=== PATIENT | male | born 1960 | race Hispanic/Latino ===

== ENCOUNTER 2020-11-16 23:28 | Emergency (ER) | payer OTHER ==
[~2020-11-16] VITALS: Ht 167.6 cm; Wt 95.3 kg
[~2020-11-16 23:28] MED LIST: Z NIFEDIPINE PO; Z.0.CELEBREX200 MG PO; Z.2.METFORMIN HCL500 PO
[2020-11-17] MEDS ORDERED: SODIUM CHLORIDE 0.9% 1000ML 1,000 ML IV SCH
[2020-11-17 00:08] LABS: BASOPHILS % 0.3 % (0.0-1.0); EOSINOPHILS % 0.2 % (0.0-6.0); HEMATOCRIT 45.7 % (38.2-49.6); HEMOGLOBIN 14.9 g/dL (14.0-18.0); LYMPHOCYTES # (AUTO) 0.8 (1.0-3.2); LYMPHOCYTES % 12.7 % (18.0-39.1); MEAN CORPUSCULAR HEMOGLOBIN 28.8 pg (28-32); MEAN CORPUSCULAR HGB CONC 32.6 g/dL (31-35); MEAN CORPUSCULAR VOLUME 88.4 fL (81-99); MONOCYTES # (AUTO) 0.7 (0.2-0.8); NEUTROPHILS # (AUTO) 4.9 (2.1-6.9); NEUTROPHILS % 75.3 % (38.7-80.0); PLATELET COUNT 212 x10e3/uL (140-360); RED BLOOD COUNT 5.17 x10e6/uL (4.3-5.7); RED CELL DISTRIBUTION WIDTH 13.6 % (11.7-14.4)
[2020-11-17] MEDS ORDERED: FAMOTIDINE 20 MG/2 ML VIAL IV STA (00:21)
[2020-11-17 00:23] LABS: ALBUMIN 3.3 g/dL (3.5-5.0); ALBUMIN/GLOBULIN RATIO 0.9 (0.8-2.0); ANION GAP 15.6 mmol/L (8-16); CALCIUM 8.7 mg/dL (8.4-10.2); CREATININE, SERUM 0.8 mg/dL (0.72-1.25); POTASSIUM 3.6 mmol/L (3.5-5.1)
[2020-11-17] MEDS ORDERED: DICYCLOMINE HCL 20 MG/2 ML VIAL IM ONE (00:30)
[2020-11-17] MEDS ORDERED: DICYCLOMINE HCL20 MG PO (01:06)
[2020-11-17 01:34] VITALS: BP 132/88
== END 2020-11-17 01:37 | disposition home or self-care (01) ==
LOC: ER 23:55
DX: R19.7 Diarrhea, unspecified (principal); I10 Essential (primary) hypertension; E11.65 Type 2 diabetes mellitus with hyperglycemia
CPT/HCPCS: 36415; 80053; 83690; 85025; 99284; J0500; J7030

== ENCOUNTER 2024-04-20 11:14 | Emergency (ER) | payer MEDICARE, OTHER ==
[~2024-04-20 11:14] MED LIST changes: +DICYCLOMINE HCL20 MG PO
[2024-04-20 11:20] VITALS: PULSE 84; RESP 20; TEMP 98.3; O2SAT 97
== END 2024-04-20 13:30 | disposition other institution (70) ==
LOC: FSED 11:21
DX: G93.6 Cerebral edema (principal); R51.9 Headache, unspecified; W01.0XXA Fall on same level from slipping, tripping and stumbling without subsequent striking against object, initial encounter; Y93.01 Activity, walking, marching and hiking; Y92.89 Other specified places as the place of occurrence of the external cause; E11.65 Type 2 diabetes mellitus with hyperglycemia; I10 Essential (primary) hypertension
CPT/HCPCS: 70450; 80053; 85025; 99283

== ENCOUNTER 2024-09-05 16:57 | Emergency (ER) | payer MEDICARE ==
[~2024-09-05] VITALS: Ht 167.6 cm; Wt 132.0 kg
[2024-09-05 17:10] VITALS: PULSE 81; RESP 20; TEMP 98
[2024-09-05] MEDS ORDERED: SODIUM CHLORIDE 0.9% 1000ML 1,000 ML ONE (17:23)
[2024-09-05] MEDS: SODIUM CHLORIDE 0.9% 1000ML 1,000 ML IV ONE (17:37)
[2024-09-05] MEDS: INSULIN REGULAR, HUMAN 100 UNIT/1 ML IV ONE (18:50)
[2024-09-05 19:15] VITALS: BP 177/79; PULSE 90; RESP 18; TEMP 98; O2SAT 95
== END 2024-09-05 19:15 | disposition home or self-care (01) ==
LOC: FSED 17:19
DX: E11.65 Type 2 diabetes mellitus with hyperglycemia (principal); I10 Essential (primary) hypertension; E78.5 Hyperlipidemia, unspecified; Z98.2 Presence of cerebrospinal fluid drainage device
CPT/HCPCS: 36415; 80053; 81003; 82948; 85025; 99283; J7030